=== PATIENT | female | born 1965 | race Caucasian/White ===

== ENCOUNTER → 2018-06-12 | Outpatient (CLI) | payer OTHER ==
[~2018-06-12] MED LIST: CBD OIL TL; CHOL500015 PO; CLON0.1T PO; DIAZ10TA4 PO; ESTR1GEL PO; ESTR1TAB99 PO; GABA300C PO; HYDR-3307 PO; LEVO100T5 PO; LEVO75TA5 PO; MELO15TA6 PO; METH500T97 PO; MULT-257 PO; MULT1TAB60 PO; OXYC-307 PO; TOPI100T8 PO; Vitamin B1 PO; Wellbutrin PO; [UNRECOGNIZED DRUG - OTHER] PO; [UNRECOGNIZED DRUG - OTHER] PO; [UNRECOGNIZED DRUG - OTHER] PO
[2018-06-12 14:59] LABS: BASOPHILS # (AUTO) 0.04 x10^3/uL (0-0.1); BASOPHILS % (AUTO) 1 % (0-1); EOSINOPHILS # (AUTO) 0.13 x10^3/uL (0-0.4); EOSINOPHILS % (AUTO) 2 % (1-7); LYMPHOCYTES # (AUTO) 2.88 x10^3/uL (1-3.4); LYMPHOCYTES % (AUTO) 38 % (22-44); MD NO; MEAN CORPUSCULAR HEMOGLOBIN 30.5 pg (27.0-34.8); MEAN CORPUSCULAR HGB CONC 33.1 g/dL (32.4-35.8); MEAN CORPUSCULAR VOLUME 91.9 fL (80-100); MEAN PLATELET VOLUME 7.8 fL (7.4-10.4); MONOCYTES # (AUTO) 0.57 x10^3/uL (0.2-0.8); MONOCYTES % (AUTO) 8 % (2-9); NEUTROPHILS # (AUTO) 4.01 x10^3/uL (1.8-6.8); NEUTROPHILS % (AUTO) 53 % (42-75); PLATELET COUNT 306 x10^3/uL (130-400); RED CELL DISTRIBUTION WIDTH 13.8 % (9.6-15.2)
[2018-06-12 15:01] LABS: MICROSCOPIC NOT IND
[2018-06-12 15:03] LABS: INTERNATIONAL NORMALIZED RATIO 0.94 (0.93-1.1); PROTHROMBIN TIME 9.8 Seconds (9.6-11.5)
[2018-06-12 15:06] LABS: ALBUMIN 3.5 g/dL (3.4-5.0); ANION GAP 7 mmol/L (5-15); CALCIUM 8.5 mg/dL (8.5-10.1); CHLORIDE 106 mmol/L (98-107)
[2018-06-12 15:10] LABS: ALANINE AMINOTRANSFERASE 27 U/L (12-78); ALKALINE PHOSPHATASE 80 U/L (45-117); BILIRUBIN,TOTAL 0.4 mg/dL (0.2-1.0); CREATININE 0.76 mg/dL (0.55-1.02)
[2018-06-12 15:11] LABS: CULTURE INDICATED? NO
== END | disposition home or self-care (01) ==
LOC: STAR 13:15
PROVIDERS: ATTEND Neurological Surgery
DX: Z01.818 Encounter for other preprocedural examination (principal); M43.12 Spondylolisthesis, cervical region; M54.12 Radiculopathy, cervical region; M48.02 Spinal stenosis, cervical region; R00.1 Bradycardia, unspecified; I10 Essential (primary) hypertension
CPT/HCPCS: 36415; 71046; 80053; 81003; 85025; 85610; 85730; 93005

== ENCOUNTER 2018-08-23 17:24 | Emergency (ER) | payer OTHER ==
[~2018-08-23] VITALS: Ht 162.6 cm; Wt 87.5 kg
[2018-08-23 18:08] LABS: BASOPHILS # (AUTO) 0.04 x10^3/uL (0-0.1); BASOPHILS % (AUTO) 0 % (0-1); EOSINOPHILS # (AUTO) 0.14 x10^3/uL (0-0.4); EOSINOPHILS % (AUTO) 2 % (1-7); LYMPHOCYTES # (AUTO) 2.76 x10^3/uL (1-3.4); LYMPHOCYTES % (AUTO) 33 % (22-44); MD NO; MEAN CORPUSCULAR HEMOGLOBIN 31.2 pg (27.0-34.8); MEAN CORPUSCULAR HGB CONC 33.8 g/dL (32.4-35.8); MEAN CORPUSCULAR VOLUME 92.5 fL (80-100); MEAN PLATELET VOLUME 7.9 fL (7.4-10.4); MONOCYTES # (AUTO) 0.64 x10^3/uL (0.2-0.8); MONOCYTES % (AUTO) 8 % (2-9); NEUTROPHILS # (AUTO) 4.88 x10^3/uL (1.8-6.8); NEUTROPHILS % (AUTO) 58 % (42-75); PLATELET COUNT 367 x10^3/uL (130-400); RED BLOOD COUNT 4.53 x10^6/uL (3.82-5.3); RED CELL DISTRIBUTION WIDTH 13.3 % (9.6-15.2)
[2018-08-23 18:20] LABS: ALANINE AMINOTRANSFERASE 25 U/L (12-78); ALBUMIN 3.7 g/dL (3.4-5.0); ANION GAP 10 mmol/L (5-15); CALCIUM 8.6 mg/dL (8.5-10.1); CHLORIDE 105 mmol/L (98-107)
[2018-08-23 18:25] LABS: ALKALINE PHOSPHATASE 94 U/L (45-117); BILIRUBIN,TOTAL 0.4 mg/dL (0.2-1.0); FREE T4 (FREE THYROXINE) 0.95 ng/dL (0.76-1.46); TOTAL PROTEIN 7.6 g/dL (6.4-8.2); TROPONIN I < 0.015 ng/mL (0.000-0.045)
[2018-08-23] MEDS ORDERED: LORazepam 1MG TABLET ONE (18:27)
[2018-08-23] MEDS ORDERED: LORazepam 1MG TABLET PO ONE (18:30)
[2018-08-23 19:33] LABS: AMPHETAMINE SCREEN, URINE Negative (Negative); BARBITURATE SCREEN, URINE Negative (Negative); BENZODIAZEPINE SCREEN, URINE Positive (Negative); CANNABINOID SCREEN, URINE Positive (Negative); COCAINE SCREEN, URINE Negative (Negative); METHADONE SCREEN, URINE Negative (Negative); OPIATE SCREEN, URINE Negative (Negative)
[2018-08-23 20:26] VITALS: BP 122/82
== END 2018-08-23 20:34 | disposition home or self-care (01) ==
LOC: ED 18:42
DX: F51.04 Psychophysiologic insomnia (principal); E03.9 Hypothyroidism, unspecified; Z88.5 Allergy status to narcotic agent; Z79.899 Other long term (current) drug therapy
CPT/HCPCS: 36415; 71045; 80053; 80307; 84439; 84443; 84484; 85025; 93005; 99285

== ENCOUNTER → 2018-09-25 | Outpatient (CLI) | payer OTHER | END | disposition home or self-care (01) | LOC: CFH 08:36 | PROVIDERS: ATTEND Specialist | DX: Z12.31 Encounter for screening mammogram for malignant neoplasm of breast (principal) | CPT/HCPCS: 77063; 77067 ==

== ENCOUNTER 2020-05-06 20:05 | Emergency (ER) | payer OTHER ==
[~2020-05-06] VITALS: Ht 162.6 cm; Wt 87.0 kg
[~2020-05-06 20:05] MED LIST changes: -CLON0.1T PO; +CLON0.1T22 PO; +HYDR-3246 PO; -HYDR-3307 PO; +MULT-449 PO; -MULT1TAB60 PO
--- NOTE | 2020-05-06 20:41 | NUR ---
PT HERE FOR VB, PT UP TO BATHROOM FOR UA. PT IS OCCASIONALLY TEARFUL AND ADMITS TO ETOH USE TODAY,. PT AMBULATORY WITH A STEADY GAIT. CALL LIGHT IN REACH
[2020-05-06 20:54] LABS: MICROSCOPIC NOT IND
[2020-05-06 21:04] LABS: BASOPHILS # (AUTO) 0.08 x10^3/uL (0-0.1); BASOPHILS % (AUTO) 1 % (0-1); EOSINOPHILS # (AUTO) 0.08 x10^3/uL (0-0.4); EOSINOPHILS % (AUTO) 1 % (1-7); LYMPHOCYTES # (AUTO) 3.04 x10^3/uL (1-3.4); LYMPHOCYTES % (AUTO) 30 % (22-44); MD NO; MEAN CORPUSCULAR HEMOGLOBIN 29.8 pg (27.0-34.8); MEAN CORPUSCULAR VOLUME 90.1 fL (80-100); MONOCYTES # (AUTO) 0.83 x10^3/uL (0.2-0.8); MONOCYTES % (AUTO) 8 % (2-9); NEUTROPHILS # (AUTO) 6.11 x10^3/uL (1.8-6.8); NEUTROPHILS % (AUTO) 60 % (42-75); PLATELET COUNT 399 x10^3/uL (130-400); RED BLOOD COUNT 4.63 x10^6/uL (3.82-5.3); RED CELL DISTRIBUTION WIDTH 14.4 % (9.6-15.2)
[2020-05-06 21:11] LABS: ANION GAP 8 mmol/L (5-15); CALCIUM 8.5 mg/dL (8.5-10.1); CHLORIDE 105 mmol/L (98-107); CREATININE 0.75 mg/dL (0.55-1.02)
[2020-05-06 21:14] VITALS: BP 109/88
--- NOTE | 2020-05-06 21:25 | NUR ---
REPORT RECEIVED FROM ANA BARRERA.
== END 2020-05-06 22:36 | disposition home or self-care (01) ==
LOC: ED 21:15
DX: N95.0 Postmenopausal bleeding (principal); N93.9 Abnormal uterine and vaginal bleeding, unspecified; R94.31 Abnormal electrocardiogram [ECG] [EKG]; E03.9 Hypothyroidism, unspecified
CPT/HCPCS: 36415; 80048; 81003; 85025; 93005; 99284

== ENCOUNTER 2020-05-29 11:57 | Emergency (ER) | payer OTHER ==
[~2020-05-29] VITALS: Ht 162.6 cm; Wt 85.7 kg
[2020-05-29 12:11] VITALS: BP 153/117
--- NOTE | 2020-05-29 12:27 | NUR ---
FIRST CONTACT WITH PT. PT C/O LAC TO LEFT SIDE OF JAW AFTER FALLING OUT OF BED. PT UNSURE WHEN LAST TDAP WAS. BLEEDING CONTROLLED. PT'S AOX4. RESPS EVEN AND UNLABORED. PA AT BEDSIDE TO EVALUATE AT THIS TIME.
[2020-05-29] MEDS ORDERED: DIPH,PERTUSS(ACELL),TET VAC/PF 0.5 ML IM-VACC ONE ×2 (12:50→13:00)
[2020-05-29] MEDS ORDERED: LIDOCAINE 1%-EPI 1:100K, 20ML ONE (12:50)
--- NOTE | 2020-05-29 12:55 | NUR ---
TDAP GIVEN AT THIS TIME.
[2020-05-29] MEDS ORDERED: LIDOCAINE 1%-EPI 1:100K, 20ML SQ ONE (13:00)
--- NOTE | 2020-05-29 13:11 | NUR ---
PT IN XRAY AT THIS TIME.
--- NOTE | 2020-05-29 13:21 | NUR ---
PT BACK TO ROOM FROM XRAY AT THIS TIME.
--- NOTE | 2020-05-29 14:20 | NUR ---
PA AT BEDSIDE FOR SUTURES AT THIS TIME.
--- NOTE | 2020-05-29 14:33 | NUR ---
PT AMB TO BR WITH STEADY GAIT.
[2020-05-29] MEDS ORDERED: NEOSPORIN OINT. PKT 1 PACKET ONE (14:35)
--- NOTE | 2020-05-29 14:44 | NUR ---
Patient given discharge instructions and they have confirmed that they understand the instructions. Patient ambulatory with steady gait.
--- NOTE | 2020-05-29 14:46 | NUR ---
THIS TECH CLEANED AND DRESSED LAC WITH BACITRACIN & BANDAID
== END 2020-05-29 14:43 | disposition home or self-care (01) ==
LOC: ED 14:16
DX: S01.422A Laceration with foreign body of left cheek and temporomandibular area, initial encounter (principal); E03.9 Hypothyroidism, unspecified; Z88.9 Allergy status to unspecified drugs, medicaments and biological substances; W06.XXXA Fall from bed, initial encounter; Y93.89 Activity, other specified; Y92.098 Other place in other non-institutional residence as the place of occurrence of the external cause; Y99.8 Other external cause status
CPT/HCPCS: 12013; 70100; 90471; 90715; 99283

== ENCOUNTER 2020-06-03 12:32 | Emergency (ER) | payer OTHER ==
[~2020-06-03] VITALS: Ht 162.6 cm; Wt 85.4 kg
[2020-06-03 13:35] VITALS: BP 154/104
--- NOTE | 2020-06-03 13:51 | NUR ---
pt presents to ED for suture removal. sutures removed by EDPA. pt given dc instructions, ambulatory to dc desk with steady gait. nadn at dc.
== END 2020-06-03 13:52 | disposition home or self-care (01) ==
LOC: ED 13:44
DX: S01.81XD Laceration without foreign body of other part of head, subsequent encounter (principal); Z48.00 Encounter for change or removal of nonsurgical wound dressing; Z87.891 Personal history of nicotine dependence; W06.XXXD Fall from bed, subsequent encounter
CPT/HCPCS: 99281